=== PATIENT | male | born 1965 | race Caucasian/White ===

== ENCOUNTER → 2024-12-17 | Day surgery (SDC) | payer MEDICAID ==
[2024-12-17] VITALS (14 sets, daily range): BP systolic 76–154; BP diastolic 42–100; PULSE 44–93; RESP 8–18; TEMP 97.4; O2SAT 91–98
[~2024-12-17] VITALS: Ht 160 cm; Wt 73.6 kg
[~2024-12-17] MED LIST: AMLO10TA13 PO; ASPI-1397 PO; BUME2TAB7 PO; CARV12.53 PO; FAMO20TA8 PO; LOSA100T58 PO; POTA-366 PO; TERA1CAP4 PO; fentaNYL/PF 50MCG/1 ML 2ML syringe ONE; midazolam 1 mg/ML 2ml injection ONE; propofol inj 20 ML IV ONE
[2024-12-17] MEDS: ringers solution, lacted 1,000 ML IV SCH (11:41)
[2024-12-17] MEDS: DOCUMENT DATE & TIME OF BETA-BLOCKER PO ONE (11:41)
== END | disposition home or self-care (01) ==
LOC: GI LAB 10:47
PROVIDERS: ATTEND Internal Medicine Gastroenterology
DX: R19.5 Other fecal abnormalities (principal); I11.0 Hypertensive heart disease with heart failure; I50.9 Heart failure, unspecified; Z79.82 Long term (current) use of aspirin; Z79.899 Other long term (current) drug therapy; Z90.49 Acquired absence of other specified parts of digestive tract; Z98.0 Intestinal bypass and anastomosis status; Z98.890 Other specified postprocedural states
CPT/HCPCS: 45378; J2250; J2704; J3010; J7120; Z7512; A4618; A4620